=== PATIENT | female | born 1955 | race Caucasian/White ===

== ENCOUNTER 2023-04-26 18:09 | Emergency (ER) | payer MEDICARE ==
[2023-04-26 18:31] VITALS: BP 191/90; O2SAT 100
--- NOTE | 2023-04-26 18:54 | ED Physician Documentation ---
History of Present Illness - Stated complaint Stated Complaint: L KNEE INJ - Chief complaint Chief Complaint: Trauma Ext - Additonal information Additional information: 67-year-old female presents emergency department for evaluation of acute left knee pain. She was on board a flight from [place] to [place] when she was returning to her seat from using the restroom. There was a large plastic container in the seats and she stepped on it and slipped. She ended up laterally hyperextending the knee. She had immediate pain thereafter and could not bear weight. She iced the knee for the rest of the flight but has been requiring the use of a wheelchair since. No history of previous knee injury. Not anticoagulated. Review of Systems Musculoskeletal: reports: Joint pain, Joint swelling PD PAST MEDICAL HISTORY - Present Medications Home Medications: Ambulatory Orders Medication Instructions Recorded Confirmed oxyCODONE [Roxicodone] 5 mg PO TID PRN #20 tablet 04/26/23 - Allergies Allergies/Adverse Reactions: Allergies Allergy/AdvReac Type Severity Reaction Status Date / Time Iodinated Contrast Media Allergy Anaphylaxis Verified 04/26/23 18:22 Sulfa (Sulfonamide Allergy Hives Verified 04/26/23 18:21 Antibiotics) PD ED PE EXPANDED - General General: Alert, No acute distress - Extremities Extremities: Left knee (Mild swelling without palpable effusion. Tenderness is elicited with laxity testing laterally though could not evaluate for laxity given tenderness. There is some focal tenderness over the lateral tibia) Results - Vitals Vitals: Vital Signs - 24 hr 04/26/23 18:22 Temperature 37 C Heart Rate 63 Respiratory 16 Rate Blood Pressure 191/90 H O2 Saturation 100 Oxygen O2 Source Room air - Rads (name of study) left knee Relevant Findings:: Final report received (No acute osseous abnormality. Moderate left knee DJD.) PD Medical Decision Making - ED course Complexity details: reviewed results, re-evaluated patient, d/w patient ED course: 67-year-old female presents emergency department for evaluation of acute left lateral knee pain sustained when she hyper extended the knee laterally when she was returning to her airplane seat. History and exam is most consistent with a sprain injury as opposed to a fracture. Most of the tenderness was elicited along the medial joint line though patient did not allow for true laxity testing. There is some mild swelling. An x-ray of the knee is interpreted by the radiologist showed no acute fracture or dislocation though she does have moderate DJD. Here in the emergency department patient was given a single dose of oxycodone with improved pain. I suspect a sprain injury or internal derangement. She is given knee immobilizer and crutches. Advised ibuprofen and Tylenol over the next several days with limited amount of narcotic analgesia at home. If not markedly improved over the next week or so may benefit from MRI imaging. The usual emergent return precautions were discussed worsening symptoms. I am prescribing a short course of short-acting opioid pain medication for this patient. I have reviewed the patients [employer]IES [employer] and no concerning findings were noted. I have discussed that the opioids are for short term therapy only, and will not be refilled from the ED. Departure - Departure Disposition: 01 Home, Self Care Clinical Impression: Sprain of lateral collateral ligament of left knee Qualifiers: Encounter type: initial encounter Qualified Code(s): S83.422A - Sprain of lateral collateral ligament of left knee, initial encounter Condition: Stable Record reviewed to determine appropriate education?: Yes Instructions: ED Sprain Knee Prescriptions: oxyCODONE [Roxicodone] 5 mg PO TID PRN #20 tablet PRN Reason: Pain Comments: What is his blood alcohol the x-ray of your knee did not show any fractures though you do have some fairly significant knee arthritis. I suspect a knee sprain or internal derangement of the ligaments. I recommend you wear the knee immobilizer when out of bed for the next week or so and use crutches to help with ambulation. Take ibuprofen 600 mg with food 2- 3 times a day or alternate with Tylenol 500 mg also 2-3 times a day. Icing the knee for 10 minutes 3-4 times a day may be helpful over the next week or so. If you are finding that after a week you are not having improved symptoms you may benefit from further evaluation either with an orthopedist or consideration of an MRI. I am prescribing a short course of narcotic pain medication for you. These are potentially dangerous and addictive medications that should be used carefully. These medications may constipate you. Take an qtni-sxf-lzipwea stool softener (docusate) twice daily with plenty of water while taking these medications. If you go 24 hours without a bowel movement, take [id number] miralax, per package instructions. Do not drink or drive while taking these medications. If you received narcotic or sedating medications while in the emergency department, do not drive for 24 hours. Store this medication in a safe, secure place and out of reach of children. It is a violation of federal law to give or sell this medication to another person or to use in a manner other than prescribed. The ED will not refill narcotic prescriptions, including prescriptions lost or stolen. To dispose of unwanted medications: 1. [facility] at [address] in [place] has a medication drop box. They accept prescription medications (in pill form) Tuesday through Tuesday 9:00 a.m. to 5:00 p.m. 2. The [facility] [employer] accepts prescription medications (in pill form only) for disposal year round. Call for more information. 3. Contact the [facility] for the next [facility] sponsored prescription drug collection event. , [phone], or [phone]; Note that many narcotic pain relievers also contain Tylenol/acetaminophen. Please ensure that your total dose of acetaminophen from all sources does not exceed 3 g (3000 mg) per day. Forms: PCP List
[2023-04-26] MEDS ORDERED: oxyCODONE 5 MG TABLET PO STA (19:21)
--- NOTE | 2023-04-26 19:21 | XRAY Report ---
PROCEDURE: Knee 3 View LT INDICATIONS: pain after fall TECHNIQUE: 3 views of the left knee(s) were acquired. COMPARISON: None. FINDINGS: Bones: No fractures or dislocations. Mild joint space narrowing most pronounced at the medial negin rtment. Tricompartmental osteophytosis. No suspicious bony lesions. Soft tissues: No significant knee joint effusion. No suspicious soft tissue calcifications or masses . IMPRESSION: No acute osseous abnormality. Moderate left knee DJD. Reviewed by: Ender Sanchez MD on 04/26/2023 7:19 PM PDT Approved by: Ender Sanchez MD on 04/26/2023 7:19 PM PDT Station ID: [id number]
== END 2023-04-26 20:34 | disposition home or self-care (01) ==
LOC: ED 18:09
DX: S83.422A Sprain of lateral collateral ligament of left knee, initial encounter (principal); W01.0XXA Fall on same level from slipping, tripping and stumbling without subsequent striking against object, initial encounter
CPT/HCPCS: 73562; 99283; A9270